=== PATIENT | male | born 1955 | race African-American/Black ===

== ENCOUNTER 2018-10-17 07:39 | Day surgery (SDC) | payer OTHER ==
--- NOTE | 2018-10-16 14:38 | HP ---
- Patient Scheduled date of Surgery: 10/17/18 Scheduled Surgical Procedure: Phacoemulsification and cataract extraction with PCIOL Affected Eye: Left Chief Complaint (Indication for surgery): Decreased vision affecting ADLs, Decreased vision impairing reading, Glare when driving at night - Ocular History Other Eye History: Other (central serous retinopathy od, traumatic anisocoria OD ) Ocular Examination - Best Corrected Visual Acuity Distance: Right eye: 20/60 Distance: Left eye: 20/60 - External/Slit Lamp Examination Abnormalities: none - Intraocular Pressure Intraocular Pressure - Right eye: 18 Intraocular Pressure-Left eye: 16 - Lens Lens: 1+ NS 2+ cortical 3+ PSC - Vitreous/Retina Vitreous/Retina: c:d 0.3 m mottled, v attenuated copperwiring - Special Examination M - Right eye: +0.25-1.00 x 080 M - Left eye: plano -0.75 x 090 K - Right eye: 44.5/45 x 125 K - Left eye: 44.75/45.25 AL - Right eye: 23.42 AL - Left eye: 23.80 IOL bag: +19.0 AUOOTO IOL sulcus: +18.0 MN6oAC IOL AC: +15.5 MTA4uo - Impression Impression: Cataract Left Eye - Plan Plan: Phacoemulsification and cataract extraction - IOL Left eye Post-hospital care will be provided in office on: 10/17/18
[2018-10-16 17:56] VITALS: BMI 27.3
--- NOTE | 2018-10-17 07:25 | HP ---
History & Physical Update - History History: No Change - Physical Physical: No Change - Assessment Assessment: No Change - Plan Plan: No Change (H and P reviewed from Dr. Oswald from 10/03/18)
[2018-10-17] MEDS ORDERED: TROPICAMIDE 1% OPHTH SOLN 15 ML BOTTLE ONE (07:56)
[2018-10-17] MEDS ORDERED: CIPROFLOXACIN HCL 0.3% OPHTH 2.5ML BOTTLE ONE (07:56)
[2018-10-17] MEDS ORDERED: PHENYLEPHRINE 2.5% OPHTH SOLN 15 ML BOTTLE ONE (07:56)
[2018-10-17] MEDS ORDERED: KETOROLAC TROMETHAMINE 0.5% EYE DROP 1 DROP DROPS ONE (07:58)
[2018-10-17] MEDS ORDERED: TROPICAMIDE 1% OPHTH SOLN 15 ML BOTTLE OS ONE ×3 (08:25→08:50)
[2018-10-17] MEDS ORDERED: CIPROFLOXACIN HCL 0.3% OPHTH 2.5ML BOTTLE OS ONE ×3 (08:25→08:49)
[2018-10-17] MEDS ORDERED: PHENYLEPHRINE 2.5% OPHTH SOLN 15 ML BOTTLE OS ONE ×3 (08:25→08:50)
[2018-10-17] MEDS ORDERED: KETOROLAC TROMETHAMINE 0.5% EYE DROP 1 DROP DROPS OS ONE ×3 (08:25→08:50)
[2018-10-17] MEDS ORDERED: MIDAZOLAM HCL 2 MG/2 ML SINGLE DOSE VIAL ONE (09:45)
[2018-10-17] MEDS ORDERED: TETRACAINE 0.5% OPHTH SOLN 2 ML BOTTLE TP ONE (10:10)
[2018-10-17] MEDS ORDERED: LIDOCAINE HCL 1% PRESERVATIVE FREE - 30ML VIAL IO ONE (10:19)
[2018-10-17] MEDS ORDERED: CHONDROITIN SU A/HYALUR SOD 1 KIT IO ONE (10:20)
[2018-10-17] MEDS ORDERED: EPINEPHrine/PF 1 MG/1 ML (1:1,000) AMPULE SQ ONE (10:21)
[2018-10-17] MEDS ORDERED: ACETYLCHOLINE 1:100 INTRA-OCUL 20 MG/2 ML KIT IO ONE (10:37)
[2018-10-17] MEDS ORDERED: TOBRAMYCIN/DEXAMETHASONE OPHTH. OINTMENT 1 TUBE OS ONE (10:41)
--- NOTE | 2018-10-17 10:56 | OP ---
Ophthalmology Operative Note Pre-Operative Diagnosis: Cataract (psc) Affected Eye: Left Operation: Phacoemulsification and cataract extraction with PCIOL Findings: PSC cataract left eye Computer Engineering Technologist: None Anesthesiologist: Chip Myrick Anesthesia: Topical Specimens Removed: none Estimated blood loss: <1 cc Drains & Tubes with Location: none Operative Report Dictated: Yes
[2018-10-17 11:02] VITALS: PULSE 79; TEMP 98
[2018-10-17 11:32] VITALS: BP 146/91
--- NOTE | 2018-10-17 12:05 | OP ---
DATE OF OPERATION: DATE OF DICTATION: 10/17/2018 PREOPERATIVE DIAGNOSIS: Posterior subcapsular cataract, left eye. POSTOPERATIVE DIAGNOSIS: Posterior subcapsular cataract, left eye. PROCEDURE: Phacoemulsification and cataract extraction with insertion of posterior chamber intraocular lens, left eye. SURGEON: Cindi Winkler MD ER RN: None. ANESTHESIA: Topical. ANESTHESIOLOGIST: NIMISHA De La Torre OPERATIVE PROCEDURE: The patient received Tetracaine eye drops and was gently sedated and prepped and draped in the usual sterile fashion so as to expose only the left eye. Ophthalmic Betadine was instilled into the inferior fornix and lashes were taped out of the surgical field. An eyelid speculum was placed into the left eye. Paracentesis was made in inferior temporal clear cornea at the limbus. Then 0.5 mL of nonpreserved lidocaine 1% was injected into the anterior chamber and then 1 mL of dilute epinephrine 1:10,000 was injected into the anterior chamber to improve pupillary dilation. Viscoelastic material was instilled into the anterior chamber via the paracentesis. A 2.4-mm keratome blade was then used to create the main incision in temporal clear cornea at the limbus. A continuous curvilinear capsulorrhexis was performed using a cystotome and Utrata forceps. Hydrodissection of the lens cortex was performed using BSS on a cannula until the nucleus was noted to be freely rotating. The phacoemulsification tip was then inserted via the main wound and used to scope 2 perpendicular grooves into the lens nucleus. The nucleus was cracked into 4 quadrants. Each quadrant was lifted out of the capsule into the iris plane and individually phacoemulsified. The remaining cortical material was then aspirated using the irrigation/aspiration port. The capsular bag was inflated using Provisc and a preloaded AcrySof lens model [id number] power +19.0 diopters was injected into the capsular bag. It was centered using a Sinskey hook. The residual viscoelastic material was removed from the anterior chamber using irrigation and aspiration. Miochol 1 mL was instilled into the anterior chamber to improve pupillary constriction, as the iris was prolapsing. The wound edges were hydrated using BSS. The wound was tested for leakage and was found to be watertight. Tobradex ointment was placed in the eye, and the speculum was removed from the eye, and the eyelid was closed. A sterile dressing and shield were placed over the eye. The patient was transferred to the recovery room in stable condition, told to follow up in 1 day. CINDI WINKLER M.D. [id number] MTDD
[2018-10-17] MEDS ORDERED: CHONDROITIN SU A/HYALUR SOD 1 KIT ONE (12:06)
== END 2018-10-17 11:15 | disposition home or self-care (01) ==
LOC: JASU-SURG 07:39
PROVIDERS: ATTEND Ophthalmology
PROC: 08RK3JZ Replacement of Left Lens with Synthetic Substitute, Percutaneous Approach (ICD-10-PCS; principal; 2018-10-17 09:30)
DX: H25.042 Posterior subcapsular polar age-related cataract, left eye (principal)
CPT/HCPCS: 82962

== ENCOUNTER 2024-05-21 04:04 | Day surgery (SDC) | payer OTHER ==
[2024-05-20 10:00] VITALS: BMI 26.7
[2024-05-21] MEDS ORDERED: LIDOCAINE HCL/PF 2% SDV 5ML VIAL ONE (13:43)
[2024-05-21] MEDS ORDERED: PROPOFOL 20 ML ONE (13:43)
[2024-05-21] MEDS ORDERED: DEXAMETHASONE SOD PHOSPHATE 4 MG/1 ML VIAL ONE (13:45)
[2024-05-21] MEDS ORDERED: KETOROLAC TROMETHAMINE 30 MG/1 ML VIAL ONE (13:45)
[2024-05-21] MEDS ORDERED: ONDANSETRON 4 MG/2 ML VIAL ONE (13:46)
[2024-05-21] MEDS ORDERED: MIDAZOLAM HCL 2 MG/2 ML SINGLE DOSE VIAL ONE (13:48)
[2024-05-21] MEDS ORDERED: ceFAZolin SODIUM 1 GM VIAL ONE (13:48)
[2024-05-21] MEDS: ceFAZolin SODIUM 1 GM VIAL IVPB ONE (13:58)
[2024-05-21] MEDS ORDERED: ACETAMINOPHEN INJECTION 100 ML ONE (14:08)
[2024-05-21] MEDS ORDERED: oxyCODONE HCL 5 MG TABLET PO PRN (14:24)
[2024-05-21] MEDS ORDERED: ONDANSETRON 4 MG/2 ML VIAL IVPUSH PRN (14:24)
[2024-05-21] MEDS ORDERED: LACTATED RINGERS SOLUTION 1,000 ML IV SCH (14:30)
[2024-05-21] MEDS ORDERED: ELECTROLYTE-148 SOLN 1,000 ML IV SCH (15:00)
[2024-05-21 16:34] VITALS: RESP 18; TEMP 97.6
[2024-05-21 17:33] VITALS: BP 138/87; PULSE 60
== END 2024-05-21 17:05 | disposition home or self-care (01) ==
LOC: JASU-SURG 04:04
PROVIDERS: ATTEND Urology
PROC: 0T7D8DZ Dilation of Urethra with Intraluminal Device, Via Natural or Artificial Opening Endoscopic (ICD-10-PCS; principal; 2024-05-21 13:30)
DX: N40.1 Benign prostatic hyperplasia with lower urinary tract symptoms (principal); R39.198 Other difficulties with micturition
CPT/HCPCS: C9740; L8699; 82962; 94760; J0131